=== PATIENT | female | born 1955 | race Caucasian/White ===

== ENCOUNTER 2018-02-03 09:52 | Day surgery (SDC) | payer OTHER ==
[~2018-02-03] VITALS: Ht 160 cm; Wt 85.6 kg
[~2018-02-03 09:52] MED LIST: CITA20 PO; DIAZ5 PO; GLUCHON PO; NAPR500 PO; PRAV20 PO
== END 2018-02-03 12:42 | disposition home or self-care (01) ==
LOC: ORSCSDS 09:52
PROVIDERS: Student in an Organized Health Care Education/Training Program
PROC: 0J8R0ZZ Division of Left Foot Subcutaneous Tissue and Fascia, Open Approach (ICD-10-PCS; principal; 2018-02-03 11:00)
DX: M72.2 Plantar fascial fibromatosis (principal); M77.32 Calcaneal spur, left foot; E78.5 Hyperlipidemia, unspecified; F32.9 Major depressive disorder, single episode, unspecified; Z79.899 Other long term (current) drug therapy; Z87.891 Personal history of nicotine dependence
CPT/HCPCS: J0171; J0690; J1100; J2250; J2405; J3010; J7120

== ENCOUNTER 2018-03-24 10:45 | Day surgery (SDC) | payer OTHER ==
[~2018-03-24] VITALS: Ht 160 cm; Wt 82.5 kg
[~2018-03-24 10:45] MED LIST changes: +ALPR.5 PO; +OXYC5 PO
== END 2018-03-24 14:00 | disposition home or self-care (01) ==
LOC: ORSCSDS 10:45
PROVIDERS: Surgery
PROC: 0HBT0ZX Excision of Right Breast, Open Approach, Diagnostic (ICD-10-PCS; principal; 2018-03-24 12:00)
PROC: 0HBT0ZZ Excision of Right Breast, Open Approach (ICD-10-PCS; principal; 2018-03-24 12:00)
DX: C50.411 Malignant neoplasm of upper-outer quadrant of right female breast (principal); I10 Essential (primary) hypertension; Z79.899 Other long term (current) drug therapy
CPT/HCPCS: J0690; J1100; J2250; J2370; J2405; J3010; J7120

== ENCOUNTER → 2020-09-02 | Outpatient (CLI) | payer OTHER | END | disposition home or self-care (01) | LOC: PLD 14:31 → LAB SHORT 14:31 | DX: G57.62 Lesion of plantar nerve, left lower limb (principal); M79.672 Pain in left foot; R26.2 Difficulty in walking, not elsewhere classified | CPT/HCPCS: 88305 ==

== ENCOUNTER 2022-03-22 03:56 | Emergency (ER) | payer OTHER ==
[~2022-03-22] VITALS: Ht 160 cm; Wt 66.7 kg
[2022-03-22 05:44] LABS: BASOPHILS ABSOLUTE AUTO 0.04 K/mm3 (0.00-0.23); BASOPHILS PERCENT AUTO 0 % (0-2); EOSINOPHILS PERCENT AUTO 0 % (0-6); Hematocrit 40.6 % (33.0-51.0); IMMATURE GRAN ABSOLUTE AUTO 0.04 K/mm3 (0.00-0.10); IMMATURE GRAN PERCENT AUTO 0 % (0-1); LYMPHOCYTES ABSOLUTE AUTO 0.85 K/mm3 (0.84-5.20); LYMPHOCYTES PERCENT AUTO 6 % (21-46); MONOCYTES PERCENT AUTO 3 % (4-13); Mean Corpuscular HGB 29.4 pg (26.0-34.0); Mean Corpuscular HGB Conc 34.5 g/dL (31.5-36.5); Mean Corpuscular Volume 85 fL (80-100); Mean Platelet Volume 10.4 fL (9.1-12.4); NEUTROPHILS ABSOLUTE AUTO 13.22 K/mm3 (1.96-9.15); NEUTROPHILS PERCENT AUTO 91 % (41-73); Platelet Count 254 K/mm3 (150-400); RDW Coefficient Variation 11.9 % (11.7-14.2); RDW Standard Deviation 37.4 fL (35.1-46.3); Red Blood Cell Count 4.76 M/mm3 (3.80-5.20); White Blood Cell Count 14.55 K/mm3 (4.00-11.30)
[2022-03-22 06:06] LABS: Albumin, Blood 4.3 g/dL (3.4-5.0); Bilirubin, Total 0.5 mg/dL (0.1-1.0); Bun/Creatinine Ratio 27.9 (12.0-20.0); Calcium, Blood 9.7 mg/dL (8.5-10.1); Creatinine, Blood 0.79 mg/dL (0.40-1.00); Globulin, Blood 4.1 g/dL (2.2-4.0); Potassium, Blood 3.4 mmol/L (3.5-5.5); Total Protein, Blood 8.4 g/dL (6.4-8.2)
[2022-03-22 11:35] LABS: Source, Urine Clean Catch
[2022-03-22 11:49] LABS: Appearance, Urine Clear (Clear); Bilirubin, Urine Neg (Neg); Blood, Urine 1+ (Neg); Color, Urine Yellow (P-Yellow); Glucose Qualitative, Urine Neg (Neg); Ketones, Urine Neg (Neg); Leukocyte Esterase, Urine Neg (Neg); Nitrite, Urine Neg (Neg); Protein, Urine 1+ (Neg); Urobilinogen, Urine NORM (Normal)
[2022-03-22 12:22] LABS: Bacteria Rare /hpf; Red Blood Cells, Urine 0-2 /hpf (0-2); Squamous Epithelial Cells Rare /hpf (Few); White Blood Cells, Urine 0-2 /hpf (0-5)
[2022-03-22] MEDS ORDERED: ONDA4ODT MM (12:34)
[2022-03-22] MEDS ORDERED: FAMO20 PO (12:36)
[2022-03-22] MEDS ORDERED: IBUP800 PO (12:36)
== END 2022-03-22 13:25 | disposition home or self-care (01) ==
LOC: ER 03:56
PROVIDERS: Student in an Organized Health Care Education/Training Program
DX: R10.10 Upper abdominal pain, unspecified (principal); R11.2 Nausea with vomiting, unspecified; E86.0 Dehydration; E87.2 Acidosis; Z88.5 Allergy status to narcotic agent; Z79.899 Other long term (current) drug therapy; Z87.891 Personal history of nicotine dependence
CPT/HCPCS: 36415; 74177; 80053; 81001; 83605; 83690; 85025; J0780; J1170; J1200; J2405; J2543; J3480; J7030; Q9967

== ENCOUNTER 2022-07-21 07:52 | Day surgery (SDC) | payer OTHER ==
[~2022-07-21] VITALS: Ht 160 cm; Wt 63.9 kg
[~2022-07-21 07:52] MED LIST changes: +FAMO20 PO; +IBUP800 PO; +ONDA4ODT MM
[2022-07-21] MEDS ORDERED: VENL75ER PO (08:05)
[2022-07-21] MEDS ORDERED: TRAZ50 PO (08:05)
[2022-07-21] MEDS ORDERED: EXEM25 PO (08:06)
[2022-07-21] MEDS ORDERED: MELO7.5 (08:06)
[2022-07-21] MEDS ORDERED: GABA300 PO (08:06)
[2022-07-21] MEDS ORDERED: RIZATRIPTAN10 MG SL (08:06)
--- NOTE | 2022-07-21 08:11 | NUR ---
07/21/22 0811 Gregory Licona CALL LIGHT WITHIN REACH. TOMIN AT 0806 IN LEFT EYE AND ANTHONY AT 0808
== END 2022-07-21 09:31 | disposition home or self-care (01) ==
LOC: ORSCSDS 07:52
PROVIDERS: Student in an Organized Health Care Education/Training Program
PROC: 08RK3JZ Replacement of Left Lens with Synthetic Substitute, Percutaneous Approach (ICD-10-PCS; principal; 2022-07-21 09:00)
DX: H25.13 Age-related nuclear cataract, bilateral (principal); I10 Essential (primary) hypertension; E78.5 Hyperlipidemia, unspecified; F32.A Depression, unspecified; N18.2 Chronic kidney disease, stage 2 (mild); Z79.899 Other long term (current) drug therapy; Z87.891 Personal history of nicotine dependence
CPT/HCPCS: J2250; J3010; J7040; V2632

== ENCOUNTER 2022-07-28 09:21 | Day surgery (SDC) | payer OTHER ==
[~2022-07-28] VITALS: Ht 160 cm; Wt 63.5 kg
[~2022-07-28 09:21] MED LIST changes: +EXEM25 PO; +GABA300 PO; +MELO7.5; +RIZATRIPTAN10 MG SL; +TRAZ50 PO; +VENL75ER PO
--- NOTE | 2022-07-28 09:52 | NUR ---
07/28/22 0952 VICKI ELLIS IN AT 0940 ANTHONY IN AT 0930
== END 2022-07-28 10:55 | disposition home or self-care (01) ==
LOC: ORSCSDS 09:21
PROVIDERS: Student in an Organized Health Care Education/Training Program
PROC: 08DJ3ZZ Extraction of Right Lens, Percutaneous Approach (ICD-10-PCS; principal; 2022-07-28 10:30)
DX: H25.11 Age-related nuclear cataract, right eye (principal); Z96.1 Presence of intraocular lens; I12.9 Hypertensive chronic kidney disease with stage 1 through stage 4 chronic kidney disease, or unspecified chronic kidney disease; N18.2 Chronic kidney disease, stage 2 (mild); F32.A Depression, unspecified; Z87.891 Personal history of nicotine dependence; Z79.899 Other long term (current) drug therapy
CPT/HCPCS: J2250; J3010; J7040; V2632

== ENCOUNTER 2023-06-08 09:01 | Day surgery (SDC) | payer MEDICARE ==
[~2023-06-08] VITALS: Ht 160 cm; Wt 69.8 kg
[2023-06-08] MEDS ORDERED: HYDROCODONE-AC1 EA19 PO (09:38)
--- NOTE | 2023-06-08 11:50 | NUR ---
06/08/23 1150 DERRICK LEWIS PT DENIES PAIN AND NAUSEA AT THIS TIME. EASILY FALLS BACK TO SLEEP. TRIAL ON 5L O2. CURRENTLY 100% ON 10L
[2023-06-08 11:59] VITALS: BP 109/95
--- NOTE | 2023-06-08 12:42 | NUR ---
06/08/23 1242 Andres Sanders IV REMOVED INTACT. SITE WNL. PT REPORTS PAIN IS TOLERABLE AND EXPRESSES READINESS TO RETURN HOME.
== END 2023-06-08 12:40 | disposition home or self-care (01) ==
LOC: ORSCSDS 09:01
PROVIDERS: Orthopaedic Surgery
PROC: 0SBC4ZZ Excision of Right Knee Joint, Percutaneous Endoscopic Approach (ICD-10-PCS; principal; 2023-06-08 10:30)
DX: S83.231A Complex tear of medial meniscus, current injury, right knee, initial encounter (principal); S83.271A Complex tear of lateral meniscus, current injury, right knee, initial encounter; E78.5 Hyperlipidemia, unspecified; F32.A Depression, unspecified; I12.9 Hypertensive chronic kidney disease with stage 1 through stage 4 chronic kidney disease, or unspecified chronic kidney disease; N18.9 Chronic kidney disease, unspecified; Z87.891 Personal history of nicotine dependence; Z79.899 Other long term (current) drug therapy
CPT/HCPCS: J0171; J0690; J1885; J2405; J2704; J3010; J7120

== ENCOUNTER 2025-03-28 09:50 | Day surgery (SDC) | payer MEDICARE ==
[~2025-03-28] VITALS: Ht 160 cm; Wt 76.6 kg
[~2025-03-28 09:50] MED LIST changes: +EPINEPhrine HCl 1 MG / ML 30ML Vial ONE; +HYDROCODONE-AC1 EA19 PO
[2025-03-28] MEDS ORDERED: Lidocaine 2%-Epineph 1:200000 20 ML SDV ONE (09:54)
[2025-03-28] MEDS ORDERED: PREG150 PO (10:46)
[2025-03-28] MEDS ORDERED: PREG150 (10:46)
[2025-03-28] MEDS ORDERED: Tranexamic Acid 100 ML IV ONE (10:59)
[2025-03-28] MEDS ORDERED: FentaNYL Citrate 50 MCG/ML 2 ML Injection ONE (11:24)
[2025-03-28] MEDS ORDERED: Midazolam HCl 1MG / ML 2ML Vial ONE (11:55)
[2025-03-28] MEDS ORDERED: Rocuronium Bromide 10 MG/ML 5ML Injection IV ONE (12:20)
[2025-03-28] MEDS ORDERED: Ondansetron HCl 2 MG / ML 2ML Vial ONE (12:20)
[2025-03-28] MEDS ORDERED: Dexamethasone Sod Phos 10 MG/ML 1ML VIAL ONE (12:20)
[2025-03-28] MEDS ORDERED: ePHEDrine Sulfate 50 MG/ML 1ML Injection ONE (12:22)
[2025-03-28] MEDS ORDERED: Sugammadex Sodium 200 MG/2ML SDV (100 MG/ML) ONE (12:34)
[2025-03-28 13:10] VITALS: BP 120/69
--- NOTE | 2025-03-28 14:01 | NUR ---
03/28/25 1401 Baldomero Artis PT DENIES PAIN AND NAUSEA AT THIS TIME. VSS. SHANTE VILLATORO EDUCATED ON D/C INSTRUCTIONS. PT AGREEABLE TO D/C HOME WITH SPOUSE CHLOENia
== END 2025-03-28 14:18 | disposition home or self-care (01) ==
LOC: ORSCSDS 09:50
PROVIDERS: Otolaryngology
PROC: 09BM0ZZ Excision of Nasal Septum, Open Approach (ICD-10-PCS; principal; 2025-03-28 11:15)
PROC: 09SL0ZZ Reposition Nasal Turbinate, Open Approach (ICD-10-PCS; principal; 2025-03-28 11:15)
DX: J34.2 Deviated nasal septum (principal); J34.3 Hypertrophy of nasal turbinates; I10 Essential (primary) hypertension; G47.33 Obstructive sleep apnea (adult) (pediatric); E78.5 Hyperlipidemia, unspecified; F32.A Depression, unspecified; J45.909 Unspecified asthma, uncomplicated; Z79.899 Other long term (current) drug therapy
CPT/HCPCS: J0165; J1100; J2250; J2405; J2704; J3010; J7120